=== PATIENT | male | born 1975 | race African-American/Black ===

== ENCOUNTER 2020-07-31 06:44 | Emergency (ER) | payer SELFPAY ==
[~2020-07-31] VITALS: Ht 180.3 cm; Wt 90.0 kg
[2020-07-31 06:50] VITALS: BP 0/0
== END 2020-07-31 07:12 ==
LOC: ER 06:55
DX: S09.90XA Unspecified injury of head, initial encounter (principal); Y35.813A Legal intervention involving manhandling, suspect injured, initial encounter; Y93.89 Activity, other specified; Y92.89 Other specified places as the place of occurrence of the external cause
CPT/HCPCS: 99283